=== PATIENT | male | born 1995 | race Caucasian/White ===

== ENCOUNTER 2023-12-23 16:53 | Emergency (ER) | payer BC ==
[2023-12-23] MEDS: Ibuprofen 600 MG Tab PO ONE (17:41)
== END 2023-12-23 18:19 | disposition home or self-care (01) ==
LOC: MW.ED 16:53
DX: R07.89 Other chest pain (principal); Z88.0 Allergy status to penicillin; Z75.8 Other problems related to medical facilities and other health care
CPT/HCPCS: 71045; 93005; 99284; A9270; 93010; 99282